=== PATIENT | female | born 1930 | race Caucasian/White ===

== ENCOUNTER 2017-02-09 23:11 | Emergency (ER) | payer OTHER ==
--- NOTE | 2017-02-09 23:18 | PDOC ---
History of Present Illness - General History Source: EMS, Family <Pawel Johnson - Last Filed: 02/09/17 23:33> - General History Source: EMS, Family (son) Exam Limitations: Unresponsive - History of Present Illness Initial Comments: 02/09/17 23:20 The patient is a 86 year old female with significant past medical history of hypertension, hyperlipidemia, CAD s/p stents, COPD, hypothyroidism, bronchitis, breast CA (bilateral mastectomy), cervical radiculopathy who presents to the ED BIBA from home for cardiac arrest prior to arrival. As per son, at bedside, patient has been complaining of SOB for the past several days. After, having dinner today she subsequently reached out to her son with concerns of food poison. Son immediately contacted EMS. EMS arrived to the scene and 5 minutes prior to arrival patient had a witnessed cardiac arrest. At that time, EMS administered 4 rounds of epi, 1 amp of bicarb, 300 of amio, patient was intubated, defibrillated x2 and cardiac thumper was placed. Patient arrived to the department at 23:10. Pulse checked at 23:11 and patient was noted to have a pulse. Cardiac motility verified on [employer]. Allergies: iodine Social History: No alcohol, tobacco, or drug use reported. Past Surgical History: s/p cardiac stents PCP: Dr. Conrad Alejandra <Radha Rodriguez - Last Filed: 02/09/17 23:58> - General Stated Complaint: CARDIAC ARREST Time Seen by Provider: 02/09/17 23:18 Past History - Past Medical History Anemia: No Asthma: Yes Cancer: Yes (BREASTS 1971) Cardiac Disorders: Yes (CAD) CVA: No COPD: Yes CHF: No Dementia: No Diabetes: Yes GI Disorders: No Disorders: No HTN: Yes Hypercholesterolemia: Yes Liver Disease: No Suicide Attempt (Hx): No Seizures: No Thyroid Disease: Yes - Surgical History Abdominal Surgery: No Appendectomy: No Cardiac Surgery: No Cholecystectomy: No Lung Surgery: No Neurologic Surgery: No Orthopedic Surgery: No - Immunization History Td Vaccination: Yes - Psycho/Social/Smoking Cessation Hx Anxiety: No Suicidal Ideation: No Smoking Status: Yes Smoking History: Current every day smoker Have you smoked in the past 12 months: Yes Number of Cigarettes Smoked Daily: 4 If you are a former smoker, when did you quit?: 2 weeks ago 'Breaking Loose' booklet given: 06/01/15 Hx Alcohol Use: No Drug/Substance Use Hx: No Substance Use Type: None Hx Substance Use Treatment: No <Pawel Johnson - Last Filed: 02/09/17 23:33> <IsaiahskipRadha - Last Filed: 02/09/17 23:58> - Past Medical History Allergies/Adverse Reactions: Allergies Allergy/AdvReac Type Severity Reaction Status Date / Time iodine [Iodine] Allergy Hives Verified 12/17/15 18:28 fluoroquinolones AdvReac Intermediate Uncoded 12/17/15 18:28 Home Medications: Ambulatory Orders Amlodipine Besylate 5 mg PO DAILY 06/01/15 Aspirin [ASA -] 81 mg PO DAILY 06/01/15 Calcium Carbonate/Vitamin D3 [Calcium 600 + Vit D 200 Tablet] 1 each PO DAILY Clopidogrel Bisulfate [Plavix -] 75 mg PO DAILY 06/01/15 Docusate Sodium [Colace -] 100 mg PO TID 06/01/15 Formoterol Fumarate [Foradil] 12 mcg PO BID 06/01/15 Multivitamin [Poly-Vitamin] 1 each PO DAILY 06/01/15 Pravastatin Sodium [Pravachol] 40 mg PO DAILY 06/01/15 Ascorbic Acid [Vitamin C] 1 tab PO DAILY 12/18/15 Bupropion HCl [Wellbutrin Xl -] 150 mg PO DAILY 12/18/15 Vitamin E (Dl,Tocopheryl Acet) [Vitamin E] 400 unit PO DAILY 12/18/15 Acyclovir [Zovirax -] 800 mg PO Q5H tablet 12/27/15 Albuterol 2.5/Ipratropium 0.5 [Duoneb -] 1 amp NEB Q4H PRN #0 amp 12/27/15 Aspirin Coated [Ecotrin -] 81 mg PO DAILY tablet.ec 12/27/15 Atorvastatin Ca [Lipitor] 10 mg PO HS tablet 12/27/15 Budesonide/Formeterol Fumarate [SYMBICORT 80/4.5mcg -] 2 puff IH BID inhaler Levothyroxine [Synthroid -] 75 mcg PO DAILY@0700 tablet 12/27/15 Lidocaine 5% Patch [Lidoderm -] 1 patch TP DAILY patch 12/27/15 Prednisone [Deltasone -] 10 mg PO DAILY #0 tablet 12/27/15 Ranitidine [Zantac -] 150 mg PO BID tablet 12/27/15 Review of Systems - Review of Systems Able to Perform ROS?: No Comments:: 02/09/17 23:20 Unable to obtain secondary to patients clinical condition. <JenniferRadha - Last Filed: 02/09/17 23:58> *Physical Exam - Vital Signs Last Vital Signs Temp Pulse Resp BP Pulse Ox 84/46 02/09/17 23:45 - Physical Exam Comments: 02/09/17 23:20 GENERAL: Well developed, well nourished. Unresponsive. No acute distress. HEENT: Normocephalic, atraumatic. Fixed and dilated. No conjunctival pallor. Sclera are non-icteric. Moist mucous membranes. NECK: Supple. Full ROM. No JVD. Carotid pulses present. CARDIOVASCULAR: Regular rate and rhythm. No murmurs, rubs, or gallops. Distal pulses present. PULMONARY: Intubated. No evidence of spontaneous respiratory effort. Lungs clear to auscultation bilaterally by BVM. ABDOMINAL: Soft. Non-tender. Mildly distended. Normoactive bowel sounds. MUSCULOSKELETAL bony deformities. EXTREMITIES: No cyanosis. No clubbing. No edema. SKIN: Cool and pale. No rashes. No jaundice. NEUROLOGICAL: Unresponsive. <Radha Rodriguez - Last Filed: 02/09/17 23:58> Medical Decision Making - Medical Decision Making 02/09/17 23:34 Dr. Johnson: The scribe's documentation has been prepared under my direction and personally reviewed by me in its entirery. I confirm that the note above accurately reflects all work, treatment, procedures, and medical decision making performed by me. at 11:25pm pt spontaneously lost her pulse again. one amp Sodium Bicarbonate and one amp Calcium give. CPR restarted pt didn't regain her vital signs. pt pronounced by me at 11:29pm Pt pcp Dr. Conrad Alejandra made aware. Son present during the code. <Pawel Johnson - Last Filed: 02/09/17 23:33> - Medical Decision Making 02/09/17 23:35 GENERAL: Well-appearing, well-nourished. No apparent distress. HEENT: Normocephalic, atraumatic. Fixed and dilated. CARDIOVASCULAR: No spontaneous cardiac activity. PULMONARY: No spontaneous breaths sounds. ABDOMEN: Soft, mildly distended EXTREMITIES: No gross deformities. SKIN: Cool and pale. No rash NEUROLOGICAL: Unresponsiveness. 02/09/17 23:[address] Conrad Alejandra (via answering service) and patient's case was discussed. <Radha Rodriguez - Last Filed: 02/09/17 23:58> *DC/Admit/Observation/Transfer - Discharge Dispostion Admit: No <Pawel Johnson - Last Filed: 02/09/17 23:33> - Attestations Scribe Attestion: 02/09/17 23:54 Documentation prepared by Radha Rodriguez, acting as medical receptionist for Pawel Johnson DO. <Radha Rodriguez - Last Filed: 02/09/17 23:58> Diagnosis at time of Disposition: Cardiac arrest - Discharge Dispostion Disposition: Condition at time of disposition: - Referrals Referrals: Conrad Alejandra MD [Primary Care Provider] -
[2017-02-09] MEDS ORDERED: SODIUM CHLORIDE 1,000 ML IV STA (23:19)
[2017-02-09 23:48] VITALS: BP 84/46
== END 2017-02-09 23:29 | disposition expired ==
LOC: JER 23:11
PROC: 5A12012 Performance of Cardiac Output, Single, Manual (ICD-10-PCS; principal; 2017-02-09)
PROC: 3E0337Z Introduction of Electrolytic and Water Balance Substance into Peripheral Vein, Percutaneous Approach (ICD-10-PCS; 2017-02-09)
DX: I46.9 Cardiac arrest, cause unspecified (principal); I25.10 Atherosclerotic heart disease of native coronary artery without angina pectoris; I10 Essential (primary) hypertension; Z95.5 Presence of coronary angioplasty implant and graft; Z87.891 Personal history of nicotine dependence; E78.00 Pure hypercholesterolemia, unspecified; J44.9 Chronic obstructive pulmonary disease, unspecified; M54.12 Radiculopathy, cervical region; Z85.3 Personal history of malignant neoplasm of breast; Z90.13 Acquired absence of bilateral breasts and nipples
CPT/HCPCS: 99282-25